=== PATIENT | female | born 1960 | race Caucasian/White ===

== ENCOUNTER → 2016-08-08 | Outpatient (CLI) | payer MEDICAID, OTHER ==
[~2016-08-08] MED LIST: ASPI-676; BACL10TA; BENA10TA; DIGO125T73; DILT240C70; MECL25TA2; OMEPRAZOLE; OXYCODONE; PAM10; SIMV40TA2; TRAZ50TA18; TRIM300C16; WARF2.5T; [UNRECOGNIZED DRUG - CODE]
--- NOTE | 2016-08-08 15:41 | RADRPT ---
PROCEDURE: Left knee radiographs. CLINICAL INDICATION: Left knee pain. TECHNIQUE: Three views. Weight bearing. Frontal, lateral, and patellar view. COMPARISON: No prior studies are available for comparison. FINDINGS: There is no fracture or dislocation. The soft tissues are normal. There are degenerative changes with osteophytes arising from all 3 joint compartment margins. There is medial joint compartment narrowing and deformity. There is no lytic or blastic lesion. There is no radiopaque foreign body. IMPRESSION: 1. Severe degenerative changes of the left knee. 2. No acute abnormality. RPTAT: QQ .Berto Byrnes MD, MD Date Time Electronically viewed and signed by .Berto Byrnes MD, MD on 08/08/2016 15:40 .R/
--- NOTE | 2016-08-09 05:11 | HKNOTE ---
DATE OF SERVICE: 08/08/2016 MAIN COMPLAINT: Pain in the left knee. HISTORY OF MAIN COMPLAINT: The patient is a 55-year-old female who is referred by Dr. Kong Jiang. The patient has been authorize to see me for pain in her left knee. MAIN COMPLAINT: Pain in the left knee. Pain from her lower back down to the left foot. 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 Since the surgery for her spinal cord tumor, she has been partially paralyzed and pierce s essentially been confined to the home. She is able to get around with a walker with a great deal of difficulty to the bathroom. She states that she has rheumatoid arthritis and has also been diagn osed as having "osteoarthritis." PRESENT COMPLAINTS: The patient's pain is mostly in the left leg, concentrated around the left knee . She states she is not certain whether the pain is originating in her knee or in her lower back. Pain varies. Some days it is worse. Mostly it is a moderate degree. Pain is aggravated by any att empt at walking. She does get rest pain. Using a walker, she is able to walk about 20 feet with a great deal of difficulty. Her right side i s paralyzed from the spine surgery. She does not have a shoe lift. She cannot clip her toenails or tie her shoelaces. PAST ORTHOPEDIC HISTORY: Spinal cord surgery in 2006 and 2011. PRIOR CORTISONE INTAKE: The patient has had cortisone injections into her back "many times over the years" [epidurals]. Three shoulder cortisone injections. ALCOHOL INTAKE: None. OTHER JOINT PROBLEMS: None. BLOOD TESTS FOR ARTHRITIS: Positive for rheumatoid arthritis. WORK STATUS: The patient has been disabled since 2005. PAST MEDICAL HISTORY: 1. Asthma. 2. Type 2 diabetes. 3. Spinal cord tumor. 4. History of heart attack in 2002. PAST SURGICAL HISTORY: 1. section. 2. Appendectomy. 3. Spinal cord biopsy and disk repair in 2006, cervical spine. 4. Cervical spine surgery at C3-C4 in 2011. ALLERGIES: 1. ERYTHROMYCIN. 2. TETRACYCLINE. 3. PENICILLIN. 4. KETOROLAC. 5. TORADOL. 6. SEROQUEL. 7. METHADONE. MEDICATIONS: 1. Prochlorperazine 10 mg every 6 hours for nausea. 2. Ventolin 2 puffs every 4 hours. 3. Zolpidem for sleep. 4. Vicodin p.r.n. for pain. 5. Lovenox injections 20 mg daily. 6. Tizanidine 2 mg every 6 hours for muscle spasms. 7. Lyrica 150 mg q. 6 hours for muscle spasms. 8. Baclofen q. 6 hours for muscle spasms. 9. Vitamin D 40 mg daily. 10. Gemfibrozil 600 mg twice a day. 11. Digoxin 0.125 mg daily by mouth. 12. Metformin ER 500 mg daily by mouth. 13. Albuterol ipratropium. 14. Carvedilol 6.25 mg a day. 15. Esomeprazole 40 mg a day. 16. Lexapro 5 mg a day. 17. Ranitidine 150 mg a day. PAIN MEDICATIONS: Used in the last 3 years 1. Dilaudid 2 mg and 4 mg. 2. Methadone 4 mg. 3. [place] 10/325. 4. Oxycodone 2 mg. 5. Meloxicam 150 mg. 6. Flexeril 5 mg. 7. Fentanyl patch. 8. Advil. 9. Tylenol. SYSTEMS REVIEW: Please see the hand written notes in the chart. LOCALIZED PHYSICAL EXAMINATION: LEFT KNEE: The left knee shows normal alignment. Active and passive extension is 0 degrees. Active and passive flexion is 135 degrees. The medial and lateral collateral ligaments and cruciate ligamen ts are intact. Anitha test is negative. There is no effusion, tenderness, scarring, crepitus, or cy sts. The patella tracks normally. There is no tenderness on the articular surface of the patella or in the patellar groove. The Q angle is normal. LEFT HIP: A full range of motion without pain. NEUROLOGIC: Straight leg raising is negative bilaterally at 80 degrees. IMAGING: Plain x-rays of the left knee brought with her were reviewed [3 views]. These show mild d egenerative changes affecting all 3 compartments of the knee. An MRI scan of the left knee without contrast obtained on 06/20/[address] Mehdi lazaro as showing "subtle alterations suspicious for tearing of the posterior horn of the medial menisc us communicating with inferior possibly superior articular surfaces." Tricompartmental degenerative changes including advanced partial thickness chondral loss affecting t he lateral compartment of the knee with marginal osteophyte formation. 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 DIAGNOSES: 1. Status post removal of tumor from cervical spine. 2. Right-sided paralysis. 3. Rheumatoid arthritis. 4. Low back pain with left-sided sciatica. 5. Mild degenerative osteoarthritis of the left knee. 6. "Subtle alterations suspicious for a tear in the posterior horn of the medial meniscus." DISCUSSION: This lady is currently not mobile. She takes past 20 paces a day going to the bathroom . She has none of the classic symptoms of an internal derangement of the knee. Examination of the left knee is completely benign so that there is no effusion present [absolute ____ for any underlyin g pathology]. There are no other classic findings suggestive either clinically or radiologically of a torn meniscus. The degree of arthritis in her left knee would be insufficient under ordinary circumstances to violet grijalva considering a knee replacement operation. Given the fact that she is pretty much bedbound, it is highly unlikely that any surgery to her left knee would benefit her in any way. Regardless, it is my professional opinion that there are sufficient clinical grounds for attribute t he cause of her left leg pain to the left knee. No specific treatment is being recommended for the knee. After I explained all of this to the patient, she asked me if I would consider giving her an injecti on of viscosupplementation into the knee to see if that might help. Under sterile conditions, given injection of 1 ampule of Monovisc injection into the knee with local anesthetic. The patient will be seen again as necessary for further evaluation and treatment. Dictated By: SHMUEL BLANCO/HANY Conf#: [id number] DID#: [id number]
== END | disposition home or self-care (01) ==
LOC: HKI 13:20
DX: M25.562 Pain in left knee (principal); M54.42 Lumbago with sciatica, left side; M06.9 Rheumatoid arthritis, unspecified; M17.12 Unilateral primary osteoarthritis, left knee; G81.91 Hemiplegia, unspecified affecting right dominant side
CPT/HCPCS: 73562; Z7500; G0463